=== PATIENT | male | born 2000 | race Caucasian/White ===

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

== ENCOUNTER 2018-07-19 15:50 | Emergency (ER) | payer OTHER ==
[~2018-07-19 15:50] MED LIST: ONDA4TAB PO; ROBC PO
[2018-07-19 15:58] VITALS: BP 124/74
--- NOTE | 2018-07-19 16:05 | ER Report ---
History and Physical Time Seen By MD: 16:00 Hx. of Stated Complaint: rash HPI/ROS CHIEF COMPLAINT: Skin rash HISTORY OF PRESENT ILLNESS: This is a 18-year-old male. He has a skin rash on his elbows and arms. He thinks it was contact dermatitis from sitting in the dentist chair yesterday which is when it started. Part of his body that were closed and covered do not have the rash. No shortness of breath. No swelling in the throat mouth lips or tongue. Denies any other symptoms or problems. No history of allergic reactions ever in the past. He did take some Benadryl tablets and tried some Benadryl cream which helped just a little bit with a rash. Allergies: Coded Allergies: No Known Drug Allergies (Unverified , 07/01/17) Home Meds Active Scripts Betamethasone Dip (BETAMETHASONE DIPROPIONATE) 15 Gm Cr, 1 LUIZ TOP BID, #1 TUBE 1 Refill Prov:TEE RIOJAS MD 07/19/18 Prednisone (PREDNISONE) 20 Mg Tablet, 40 MG PO QDAY, #4 TAB 1 Refill Prov:TEE RIOJAS MD 07/19/18 Ondansetron (ZOFRAN ODT) 4 Mg Tab.rapdis, 4 MG PO Q6H PRN for NAUSEA/VOMITING, #20 TAB.KIRA 0 Refills Prov:TEE RIOJAS MD 07/02/17 Guaifenesin/Codeine (GUAIFENESIN-CODEINE SYRUP) 5 Ml Syrp, 5 ML PO Q6H PRN for COUGH, #120 ML 0 Refills Prov:TEE RIOJAS MD 07/02/17 Reviewed Nurses Notes: Yes Hx Substance Use Disorder: No Hx Alcohol Use: No Constitutional Vital Sign - Last 24 Hours 07/19/18 15:58 Temp 98.3 Pulse 80 Resp 16 B/P (MAP) 124/74 Pulse Ox 96 O2 Delivery Room Air Physical Exam Gen.: Alert, no distress Skin: Has rash that is raised and macular on the arms, confluent at the elbows and satellite lesions throughout the rest the arms. No other involvement. Respiratory: Breathing easily Cardiovascular: Normal cap refill ENT: Normal mucosa. Medical Decision Making ED Course/Re-evaluation ED Course Appears like contact dermatitis. We'll try oral prednisone and betamethasone dipropionate ointment topically Decision to Disposition Date: Jul 19, 2018 Decision to Disposition Time: 16:05 Depart Departure Latest Vital Signs Vital Signs Date Time Temp Pulse Resp B/P (MAP) Pulse Ox O2 Delivery O2 Flow Rate FiO2 07/19/18 15:58 98.3 80 16 124/74 96 Room Air Impression: Primary Impression: Contact dermatitis Condition: Improved Disposition: HOME OR SELF-CARE New Scripts Betamethasone Dip (BETAMETHASONE DIPROPIONATE) 15 Gm Cr 1 LUIZ TOP BID, #1 TUBE 1 Refill Prov: TEE RIOJAS MD 07/19/18 Prednisone (PREDNISONE) 20 Mg Tablet 40 MG PO QDAY, #4 TAB 1 Refill Prov: TEE RIOJAS MD 07/19/18 Patient Instructions: Contact Dermatitis (ED) Additional Instructions: Take Prednisone 20mg tablets, 2 tablets once a day for 2 days. If still present after this, you can repeat for 2 more days. Topical Betamethasone Dipropionate topical. Apply to affected areas twice a day until resolved. If not resolving in the next 5-7 days, please follow-up with dermatology or with primary care for re-evaluation. Problem Qualifiers Primary Impression: Contact dermatitis Contact dermatitis type: allergic Contact dermatitis trigger: other chemical product Qualified Codes: L23.5 - Allergic contact dermatitis due to other chemical products TEE RIOJAS MD Jul 19, 2018 16:05
[2018-07-19] MEDS ORDERED: BETD15T TOP (16:09)
[2018-07-19] MEDS ORDERED: PRED20TA6 PO (16:09)
== END 2018-07-19 16:35 | disposition home or self-care (01) ==
LOC: ER 16:02
DX: L25.9 Unspecified contact dermatitis, unspecified cause (principal)
CPT/HCPCS: 99282